=== PATIENT | female | born 1955 | race Caucasian/White ===

== ENCOUNTER → 2020-04-20 | Outpatient (CLI) | payer OTHER ==
--- NOTE | 2020-04-20 14:55 | CT ---
EXAM: Head INDICATION: CLOSED HEAD INJURY . COMPARISON: None available TECHNIQUE: CT of the head was performed without IV contrast. Multiple axial images and multiplanar reconstructions were generated. This exam was performed according to our departmental dose-optimization program, which includes automated exposure control, adjustment of the mA and/or kV according to patient size and/or use of iterative reconstruction technique. FINDINGS: Note is made that the examination is slightly degraded at the level of the midbrain due to motion and streak artifact. No CT evidence for acute cortical infarct. No acute intracranial hemorrhage. No mass effect or midline shift. No hydrocephalus. Intracranial atherosclerosis. Unremarkable appearance of the visualized globes and orbits. The calvaria and skull base are intact. The paranasal sinuses and mastoid air cells are clear. Soft tissue edema and/or hematoma in the right frontotemporal scalp superficial soft tissues. IMPRESSION: 1. No acute intracranial abnormality. 2. Right frontotemporal scalp soft tissue edema and/or hematoma without underlying fracture. Electronically signed by: Maris Mcnulty MD 04/20/2020 2:53 PM [facility]
== END ==
LOC: CT 14:17
PROVIDERS: ATTEND Nurse Practitioner Family
DX: S09.90XA Unspecified injury of head, initial encounter (principal); M79.9 Soft tissue disorder, unspecified